=== PATIENT | female | born 1955 | race Caucasian/White ===

== ENCOUNTER 2016-06-20 20:07 | Emergency (ER) | payer OTHER ==
[2016-06-20 20:24] VITALS: TEMP 98.4
--- NOTE | 2016-06-20 20:24 | EDPHY ---
HPI/HX/ROS/PE/MDM Narrative: CHIEF COMPLAINT: Epigastric pain. HISTORY OF PRESENT ILLNESS: The patient is a 60-year-old female who presents with sharp/achy epigastric pain for the past 2 days. On Tuesday she ate breakfast and then felt "overly full" and distended, which caused her to feel short of breath. She has had the epigastric pain since. This pain and bloating are exacerbated with food and she feels nauseated when she eats. The pain radiates to her back. She denies fever, diarrhea, or vomiting. No chills, chest pain, shortness of breath, palpitations, vomiting, diarrhea, urinary complaints , headache, lightheadedness. She has used Advil and Pepto-Bismol to small effect. She has a history of ischemic colitis and reports that this feels similar but worse. REVIEW OF SYSTEMS: Aside from elements discussed in the HPI, a comprehensive 10-point review of systems was reviewed and is negative. PAST MEDICAL HISTORY: Hypertension, diabetes, hypothyroidism, depression, umbilical hernia repair, hysterectomy, one oophorectomy. SOCIAL HISTORY: Smokes marijuana and cigarettes. VITAL SIGNS: Reviewed by me GENERAL: Well-developed, well-nourished, in no respiratory distress. Uncomfortable-appearing. HEENT: Atraumatic. Eyes: No icterus, no injection. Mouth: moist mucous membranes. No erythema or lesions. Neck: supple with no adenopathy. LUNGS: No wheezes, rhonchi, or rales. Coarse breath sounds, limited air movement. CARDIAC: Regular rate and rhythm, no rubs, murmurs or gallops. ABDOMEN: Soft, nondistended, bowel sounds normal. Mild epigastric tenderness. No rebound, no guarding. BACK: No CVA tenderness. EXTREMITIES: No trauma. No edema. Range of motion is normal throughout. NEURO: Alert and oriented, grossly nonfocal. SKIN: Warm and dry, no rash. PSYCHIATRIC: Normal mentation, no agitation. Portions of this note were transcribed by a medical imaging director. I personally performed a history, physical exam, medical decision making, and confirmed accuracy of information the transcribed note. ED Course: An IV was established and labs ordered including troponin. Abdominal CT ordered as her pain appears to be abdominal more than cardiac and she does have a history of abdominal procedures. .5mg IV Dilaudid, 1L NS, and 4mg IV Zofran administered. Labs largely unremarkable. Normal lipase and LFTs. CT scan with no evidence of SBO, colitis, gastritis, pancreatitis. EKG nonischemic; troponin negative with 2 days of discomfort. Better with protonix IV. Will DC with precautions and close followup. MDM: After obtaining the patients history and performing an examination, differential diagnosis considered included but was not limited to cardiac causes , cholecystitis, gastritis, pancreatitis, bowel obstruction, ACS, urinary tract infections and other causes. - Data Points Laboratory Results: Laboratory Results 06/20/16 20:25 06/20/16 20:25 Medications Given: Discontinued Medications Hydrocodone Bitart/Acetaminophen ([place] 5/325mg Prepack#6) 1 btl TAKEHOME EDNOW ONE Stop: 06/20/16 22:07 Last Admin: 06/20/16 22:17 Dose: 1 btl Hydromorphone HCl (Dilaudid) 0.5 mg IVP EDNOW ONE Stop: 06/20/16 20:43 Last Admin: 06/20/16 20:57 Dose: 0.5 mg Sodium Chloride (Ns) 1,000 mls @ 0 mls/hr IV ONCE ONE PRN Reason: Wide Open Stop: 06/20/16 20:43 Last Admin: 06/20/16 20:50 Dose: 1,000 mls Ondansetron HCl (Zofran) 4 mg IVP EDNOW ONE Stop: 06/20/16 20:43 Last Admin: 06/20/16 20:50 Dose: 4 mg Ondansetron HCl (Zofran Odt 4 Mg Prepack#2) 1 btl TAKEHOME EDNOW ONE Stop: 06/20/16 22:07 Last Admin: 06/20/16 22:31 Dose: 1 btl Pantoprazole Sodium (Protonix) 40 mg IVP EDNOW ONE Stop: 06/20/16 20:53 Last Admin: 06/20/16 21:35 Dose: 40 mg General Time Seen by Provider: 06/20/16 20:20 Initial Vital Signs: Initial Vital Signs Temperature (C) 36.9 C 06/20/16 20:10 Heart Rate 74 06/20/16 20:10 Respiratory Rate 18 06/20/16 20:10 Blood Pressure 160/93 H 06/20/16 20:10 O2 Sat (%) 92 06/20/16 20:10 O2 Delivery Mode Room Air O2 (L/minute) 1 Allergies/Adverse Reactions: No Known Allergies Allergy (Unverified 06/20/16 20:24) Home Medications: Medication Instructions Recorded Aspirin [Aspirin 81mg (*)] 81 mg PO DAILY 06/20/16 CHOLECALCIFEROL [VITAMIN D] 2,000 unit PO 06/20/16 Levothyroxine [Synthroid 112 mcg 112 mcg PO DAILY06 06/20/16 (*)] Lisinopril 20 mg PO 06/20/16 Metformin HCl [Fortamet] 1,000 mg PO DAILY 06/20/16 Multivitamin [Multi-Day Vitamins] 1 each PO 06/20/16 Venlafaxine HCl [Effexor] 100 mg PO 06/20/16 Departure - Departure Disposition: Home, Routine, Self-Care Clinical Impression: Epigastric pain Condition: Good Instructions: Hydrocodone/Acetaminophen (By mouth), Ondansetron (By mouth), Epigastric Pain (ED) Additional Instructions: Please begin taking a 2 week course of omeprazole. This is available over-the- counter. You may use Zofran if needed for any residual nausea or vomiting. If you have severe pain, you have been given [place]. This will cause constipation. Use with caution. For your abdominal pain, I suggested you start with a bland diet and advance as tolerated. This means start with clear liquids such as water, Gatorade, juice, flat non- caffeinated soda. If you tolerate clear liquids, then you may add bland foods such as bananas, rice, or toast. If you do not have any worsening of your symptoms, you may begin to resume a regular diet. Please follow up with your primary care physician within the next several days. Return to the emergency department if you develop worsening pain, fever, vomiting, diarrhea, chest pain, shortness of breath, or other concerns. Referrals: Celia Us DO [Primary Care Provider] - As per Instructions Report Scribed for: Samaria Pantoja Report Scribed by: Drew Barrett Date of Report: 06/20/16 Time of Report: 20:20
--- NOTE | 2016-06-20 20:31 | CPEKG ---
Heart Rate: 77 RR Interval: 779 P-R Interval: 144 QRSD Interval: 80 QT Interval: 372 QTC Interval: 421 P [place]: 84 QRS [place]: 57 T Wave [place]: 72 EKG Severity - NORMAL ECG - EKG Impression: SINUS RHYTHM Electronically Signed By: Samaria Pantoja 20-Jun-2016 22:27:29
[2016-06-20] MEDS ORDERED: ONDANSETRON 4 MG/2 ML VIAL IVP ONE (20:42)
[2016-06-20] MEDS ORDERED: HYDROmorphONE/DILAUDID 1 MG/ML SYR IVP ONE (20:42)
[2016-06-20] MEDS ORDERED: NS 1,000 ML IV ONE (20:42)
[2016-06-20 20:48] LABS: % IMMATURE GRANULYOCYTES 0.3 % (0.0-1.1); ABSOLUTE IMMATURE GRANULOCYTES 0.02 10^3/uL (0.00-0.10); ADD DIFF? NO; ADD MORPH? NO; ADD SCAN? NO; ATYPICAL LYMPHOCYTE FLAG 50 (0-99); FRAGMENT RBC FLAG 0 (0-99); HEMATOCRIT 43.7 % (38.0-47.0); HEMOGLOBIN 15.1 g/dL (12.6-16.3); LEFT SHIFT FLG 0 (0-99); LIPEMIA HEMOLYSIS FLAG 90 (0-99); MEAN CELL HEMOGLOBIN 28.8 pg (27.9-34.1); MEAN CELL HEMOGLOBIN CONCENTR. 34.6 g/dL (32.4-36.7); MEAN CELL VOLUME 83.4 fL (81.5-99.8); MEAN PLATELET VOLUME 12.7 fL (8.7-11.7); PLATELET CLUMPS FLAG 0 (0-99); PLATELET COUNT 156 10^3/uL (150-400); RED BLOOD CELL COUNT 5.24 10^6/uL (4.18-5.33)
[2016-06-20] MEDS ORDERED: PANTOPRAZOLE SODIUM 40 MG VIAL IVP ONE (20:52)
[2016-06-20 20:55] LABS: ALANINE AMINOTRANSFERASE 29 IU/L (9-52); ALBUMIN 4.2 g/dL (3.5-5.0); ALKALINE PHOSPHATASE 68 IU/L (38-126); ANION GAP 9 mEq/L (8-16); ASPARTATE AMINOTRANSFERASE 29 IU/L (14-46); BILIRUBIN,TOTAL 0.5 mg/dL (0.1-1.4); BILIRUBIN-CONJUGATED 0.4 mg/dL (0.0-0.5); BILIRUBIN-UNCONJUGATED 0.1 mg/dL (0.0-1.1); CALCIUM 10.2 mg/dL (8.5-10.4); CARBON DIOXIDE 25 mEq/l (22-31); CHLORIDE 104 mEq/L (97-110); CREATININE 0.8 mg/dL (0.6-1.0); GLOMERULAR FILTRATION RATE > 60; GLUCOSE 122 mg/dL (70-100); POTASSIUM 4.7 mEq/L (3.5-5.2); SODIUM 138 mEq/L (134-144); TOTAL PROTEIN 7.3 g/dL (6.3-8.2)
[2016-06-20] MEDS ORDERED: IOPAMIDOL (ISOVUE-300) 100 ML BTL IV ONE (21:20)
[2016-06-20] MEDS ORDERED: NS 100 ML BAG IV ONE (21:29)
[2016-06-20] MEDS ORDERED: ONDANSETRON 4MG PREPACK#2 BTL TAKEHOME ONE (22:06)
[2016-06-20] MEDS ORDERED: HYDROCOD/APAP 5/325 PREPACK#6 BTL TAKEHOME ONE (22:06)
[2016-06-20 22:33] VITALS: BP 112/74; PULSE 62; RESP 16; O2SAT 94
== END 2016-06-20 22:33 | disposition home or self-care (01) ==
DX: R10.13 Epigastric pain (principal); E11.9 Type 2 diabetes mellitus without complications; I10 Essential (primary) hypertension; F17.210 Nicotine dependence, cigarettes, uncomplicated; Z79.82 Long term (current) use of aspirin; Z79.84 Long term (current) use of oral hypoglycemic drugs; Z90.710 Acquired absence of both cervix and uterus
CPT/HCPCS: 96374; J1170; J2405; Q9967

== ENCOUNTER 2017-08-06 09:18 | Emergency (ER) | payer OTHER ==
[2017-08-06] MEDS ORDERED: KETOROLAC 30 MG/1 ML SDV IVP ONE (09:36)
[2017-08-06] MEDS ORDERED: NS 1,000 ML IV ONE (09:36)
[2017-08-06] MEDS ORDERED: DIAZEPAM 5 MG/ML 1 ML SYR IVP ONE (09:37)
--- NOTE | 2017-08-06 09:40 | EDPHY ---
H & P Stated Complaint: non traumatic R lower back pain down leg x 1 week, nausea Time Seen by Provider: 08/06/17 09:29 HPI/ROS: CHIEF COMPLAINT: Right flank pain HISTORY OF PRESENT ILLNESS: Patient is a 62-year-old female who is been complaining of right sided back, flank, inguinal and leg pain anteriorly for the last 2 weeks. She states that she saw her primary doctor who initially treated her with prednisone and Flexeril but this did not help. She went back week later and was started on Vicodin and baclofen. She states this also has not helped. She has been taking ibuprofen and Tylenol as well. Last night she vomited because the pain was so bad. She has not had any hematuria. No fever. No abdominal tenderness. No diarrhea. She has not noticed any focal weakness or numbness. No bowel or bladder abnormalities. She denies any trauma. She states that this began spontaneously and abruptly a few weeks ago. She has an appointment with a spine surgeon on . REVIEW OF SYSTEMS: Constitutional: denies: chills, fever, recent illness, recent injury EENTM: denies: blurred vision, double vision, nose congestion Respiratory: denies: cough, shortness of breath Cardiac: denies: chest pain, irregular heart rate, lightheadedness, palpitations Gastrointestinal/Abdominal: denies: abdominal pain, diarrhea, nausea, vomiting, blood streaked stools Genitourinary: denies: dysuria, frequency, hematuria, pain Musculoskeletal: See HPI Skin: denies: lesions, rash, jaundice, bruising Neurological: denies: headache, numbness, paresthesia, tingling, dizziness, weakness Hematologic/Lymphatic: denies: blood clots, easy bleeding, easy bruising Immunologic/allergic: denies: HIV/AIDS, transplant EXAM: GENERAL: Well-appearing, well-nourished and in no acute distress. HEAD: Atraumatic, normocephalic. EYES: Pupils equal round and reactive to light, extraocular movements intact, sclera anicteric, conjunctiva are normal. ENT: TMs normal, nares patent, oropharynx clear without exudates. Moist mucous membranes. NECK: Normal range of motion, supple without lymphadenopathy or JVD. LUNGS: Breath sounds clear to auscultation bilaterally and equal. No wheezes rales or rhonchi. HEART: Regular rate and rhythm without murmurs, rubs or gallops. ABDOMEN: Soft, nontender, normoactive bowel sounds. No guarding, no rebound. No masses appreciated. BACK: The patient points to pain in her right flank radiating down her inguinal region in and L2 distribution but also complains of pain in her anterior leg and L3-4 distribution. No sensation changes. No CVA tenderness, no spinal tenderness, step-offs or deformities EXTREMITIES: Normal range of motion, no pitting or edema. No clubbing or cyanosis. NEUROLOGICAL: See above, Cranial nerves II through XII grossly intact. Normal speech, normal gait. 5/5 strength, normal movement in all extremities, normal sensation PSYCH: Normal mood, normal affect. SKIN: Warm, dry, normal turgor, no visible rashes or lesions. Source: Patient, Family Exam Limitations: No limitations - Medical/Surgical History Hx Asthma: No Hx Chronic Respiratory Disease: No Hx Diabetes: Yes Hx Cardiac Disease: No Hx Renal Disease: No Hx Cirrhosis: No Hx Alcoholism: No Hx HIV/AIDS: No Hx Splenectomy or Spleen Trauma: No Other PMH: HTN, DEPRESSION, THYROID, "pre" D.M. - Family History Significant Family History: No pertinent family hx - Social History Smoking Status: Current every day smoker Alcohol Use: Sober Drug Use: None Constitutional: Initial Vital Signs Temperature (C) 37.0 C 08/06/17 09:24 Heart Rate 89 08/06/17 09:24 Respiratory Rate 16 08/06/17 09:24 Blood Pressure 129/91 H 08/06/17 09:24 O2 Sat (%) 97 08/06/17 09:24 O2 Delivery Mode Room Air Allergies/Adverse Reactions: No Known Allergies Allergy (Unverified 06/20/16 20:24) Home Medications: Medication Instructions Recorded Aspirin [Aspirin 81mg (*)] 81 mg PO DAILY 06/20/16 CHOLECALCIFEROL [VITAMIN D] 2,000 unit PO 06/20/16 Levothyroxine [Synthroid 112 mcg 112 mcg PO DAILY06 06/20/16 (*)] Lisinopril 20 mg PO 06/20/16 Metformin HCl [Fortamet] 1,000 mg PO DAILY 06/20/16 Multivitamin [Multi-Day Vitamins] 1 each PO 06/20/16 Venlafaxine HCl [Effexor] 100 mg PO 06/20/16 morphINE IR [morphINE IR 15 mg (*)] 15 mg PO Q3-4PRN PRN #10 tab 08/06/17 Medical Decision Making - Diagnostics Imaging Results: Imaging Impressions Lumbar Spine X-Ray 08/06/17 09:02 Impression: Multilevel lower lumbar degenerative disk disease, with grade 1 degenerative anterolisthesis at L3-L4. Abdomen/Pelvis CT 08/06/17 09:37 Impression: 1. Negative non-contrast CT examination of the urinary system. 2. Multilevel lower lumbar degenerative disk disease with grade 1 degenerative spondylolisthesis at L3-L4. Results called to Dr. Kana Flowers at 10:45 AM. Attention: This CT examination is specifically designed to evaluate patients who are clinically suspected of having acute obstructive uropathy. This examination does not use radiographic contrast, and as such, provides only a limited evaluation of the abdomen, pelvis and retroperitoneum. If there is further clinical suspicion for pathological conditions other than obstructive uropathy, a complete CT evaluation of the abdomen and pelvis utilizing intravenous, oral, and rectal contrast should be considered. Imaging: Discussed imaging studies w/ call worker Radiologist ED Course/Re-evaluation: 10:50 a.m. We discussed the CT results. They are reassuring. No sign of appendicitis or kidney stone. The patient lab work is reassuring. She does have obvious degenerative disc disease and bulging. She has a follow-up appoint with her spine surgeon on . She does not have any focal neurologic deficits at this time I do not think emergent MRI is indicated. We did discuss indications for returning. She is requesting different pain medications. We will try morphine IR. She feels somewhat sleepy after the Valium but states that he is still having pain. Differential Diagnosis: Partial list of the Differential diagnosis considered include but were not limited to; degenerative disc disease, radiculopathy, appendicitis, kidney stone and although unlikely based on the history and physical exam, I also considered urinary tract infection, ovarian cyst, tumor. I discussed these differential diagnoses and the plan with the patient as well as the usual and expected course. The patient understands that the diagnosis is provisional and that in medicine we are not always correct and that further workup is often warranted. Usual and customary warnings were given. All of the patient's questions were answered. The patient was instructed to return to the emergency department should the symptoms at all worsen or return, otherwise to followup with the physician as we discussed. - Data Points Laboratory Results: Laboratory Results 08/06/17 09:50 08/06/17 09:50 08/06/17 08/06/17 08/06/17 09:50 09:50 09:50 WBC 12.31 10^3/uL H 10^3/uL (3.80-9.50) RBC 5.69 10^6/uL H 10^6/uL (4.18-5.33) Hgb 16.2 g/dL g/dL (12.6-16.3) Hct 47.7 % H % (38.0-47.0) MCV 83.8 fL fL (81.5-99.8) MCH 28.5 pg pg (27.9-34.1) MCHC 34.0 g/dL g/dL (32.4-36.7) RDW 12.6 % % (11.5-15.2) Plt Count 277 10^3/uL 10^3/uL (150-400) MPV 11.6 fL fL (8.7-11.7) Neut % (Auto) 73.6 % % (39.3-74.2) Lymph % (Auto) 17.1 % % (15.0-45.0) [place] % (Auto) 6.7 % % (4.5-13.0) Eos % (Auto) 1.0 % % (0.6-7.6) Baso % (Auto) 0.8 % % (0.3-1.7) Nucleat RBC Rel Count 0.0 % % (0.0-0.2) Absolute Neuts (auto) 9.06 10^3/uL H 10^3/uL (1.70-6.50) Absolute Lymphs (auto) 2.11 10^3/uL 10^3/uL (1.00-3.00) Absolute Monos (auto) 0.82 10^3/uL H 10^3/uL (0.30-0.80) Absolute Eos (auto) 0.12 10^3/uL 10^3/uL (0.03-0.40) Absolute Basos (auto) 0.10 10^3/uL 10^3/uL (0.02-0.10) Absolute Nucleated RBC 0.00 10^3/uL 10^3/uL (0-0.01) Immature Gran % 0.8 % % (0.0-1.1) Immature Gran # 0.10 10^3/uL 10^3/uL (0.00-0.10) PT 12.9 SEC SEC (12.0-15.0) INR 0.95 (0.83-1.16) APTT 21.9 SEC L SEC (23.0-38.0) Sodium 141 mEq/L mEq/L (135-145) Potassium 4.7 mEq/L mEq/L (3.3-5.0) Chloride 102 mEq/L mEq/L (97-110) Carbon Dioxide 25 mEq/l mEq/l (22-31) Anion Gap 14 mEq/L mEq/L (8-16) BUN 21 mg/dL mg/dL (7-23) Creatinine 0.9 mg/dL mg/dL (0.6-1.0) Estimated GFR > 60 Glucose 140 mg/dL H mg/dL (70-100) Calcium 10.6 mg/dL H mg/dL (8.5-10.4) Total Bilirubin 0.8 mg/dL mg/dL (0.1-1.4) Conjugated Bilirubin 0.4 mg/dL mg/dL (0.0-0.5) Unconjugated Bilirubin 0.4 mg/dL mg/dL (0.0-1.1) AST 23 IU/L IU/L (14-46) ALT 28 IU/L IU/L (9-52) Alkaline Phosphatase 65 IU/L IU/L (38-126) Total Protein 7.9 g/dL g/dL (6.3-8.2) Albumin 4.5 g/dL g/dL (3.5-5.0) Lipase 64 IU/L IU/L (23-300) Medications Given: Discontinued Medications Diazepam (Valium) 5 mg IVP EDNOW ONE Stop: 08/06/17 09:38 Last Admin: 08/06/17 10:07 Dose: 5 mg Sodium Chloride (Ns) 1,000 mls @ 0 mls/hr IV EDNOW ONE; Wide Open PRN Reason: Protocol Stop: 08/06/17 09:37 Last Admin: 08/06/17 09:40 Dose: 1,000 mls Ketorolac Tromethamine (Toradol) 30 mg IVP EDNOW ONE Stop: 08/06/17 09:37 Last Admin: 08/06/17 10:07 Dose: 30 mg Departure - Departure Disposition: Home, Routine, Self-Care Clinical Impression: Lumbar back pain with radiculopathy affecting right lower extremity Condition: Fair Instructions: Lumbar Radiculopathy (ED) Referrals: Celia Us DO [Primary Care Provider] - As per Instructions [facility] [Provider Group] - As per Instructions Prescriptions: morphINE IR [morphINE IR 15 mg (*)] 15 mg PO Q3-4PRN PRN #10 tab PRN Reason: Pain, Severe
[2017-08-06 09:55] LABS: PLATELET COUNT 277 10^3/uL (150-400)
[2017-08-06 10:02] LABS: INR 0.95 (0.83-1.16); PROTIME(PATIENT) 12.9 SEC (12.0-15.0)
[2017-08-06 11:04] VITALS: BP 142/93
== END 2017-08-06 11:02 | disposition home or self-care (01) ==
LOC: EDSTATUS 09:18
DX: M54.16 Radiculopathy, lumbar region (principal); I10 Essential (primary) hypertension; F17.200 Nicotine dependence, unspecified, uncomplicated; Z79.82 Long term (current) use of aspirin
CPT/HCPCS: 96374; J1885; J3360